=== PATIENT | male | born 1950 | race Caucasian/White ===

== ENCOUNTER 2023-10-25 10:09 | Emergency (ER) | payer OTHER ==
[~2023-10-25] VITALS: Ht 172.7 cm; Wt 81.8 kg
[~2023-10-25 10:09] MED LIST: ATOR20TA PO
[2023-10-25] MEDS ORDERED: bp med PO (10:17)
[2023-10-25 10:19] VITALS: TEMP 98.1
[2023-10-25 12:52] VITALS: BP 133/66; PULSE 75; RESP 16
[2023-10-25] MEDS ORDERED: METH4TAB3 PO (13:07)
[2023-10-25] MEDS ORDERED: CETI-450 PO (13:07)
[2023-10-25] MEDS ORDERED: DIPH-1243 PO (13:07)
[2023-10-25] MEDS: DEXAMETHASONE SOD PHOS 4 MG/ML 5 ML VIAL IM ONE (13:11)
== END 2023-10-25 16:43 | disposition home or self-care (01) ==
LOC: EMS 10:09
DX: L50.9 Urticaria, unspecified (principal); B86 Scabies; E78.00 Pure hypercholesterolemia, unspecified
CPT/HCPCS: 99283; 96372; J1100

== ENCOUNTER 2023-11-07 08:34 | Emergency (ER) | payer OTHER ==
[~2023-11-07] VITALS: Ht 167.6 cm; Wt 80.9 kg
[~2023-11-07 08:34] MED LIST changes: +CETI-450 PO; +DIPH-1243 PO; +METH4TAB3 PO; +bp med PO
[2023-11-07] MEDS ORDERED: LISI-894 PO (08:45)
[2023-11-07] MEDS ORDERED: SIMV-260 PO (08:45)
[2023-11-07 08:47] VITALS: TEMP 98.6
[2023-11-07] MEDS: PERMETHRIN 5% 60 GM CREAM TP ONE (10:13)
[2023-11-07 10:14] VITALS: BP 128/74; PULSE 88; RESP 16
== END 2023-11-07 10:47 | disposition home or self-care (01) ==
LOC: EMS 08:55
DX: B86 Scabies (principal); E78.00 Pure hypercholesterolemia, unspecified
CPT/HCPCS: 99282; Z7502; Z7610